=== PATIENT | female | born 2000 | race Asian ===

== ENCOUNTER → 2025-01-26 20:30 | Outpatient (REF) | payer OTHER, SELFPAY ==
--- OUTSIDE RECORDS SUMMARY | 2025-01-26 20:50 | XMS_ITS | Referral Summary ---
Author Organization [facility] Address [address] [place] [address] Care Team Providers Care Oil Field Operator Name Role Phone Ina Barnett MD Primary Care Provider [phone] Encounters Date Type Department Care Team Description 12/25/2024 Orders Only [facility] Allergy [address] [address] Rock Picker: Prakash Mondragon NP RICARDO (obstructive sleep apnea) (Primary Dx) 12/25/2024 myChart Message [facility] Lung and Allergy [address] [address] Rock Picker: Prakash Mondragon NP Sleep study 11/27/2024 9:00 AM EST Office Visit [facility] [address] [place] [phone] Rock Picker: Ina Blackwood MD Routine general medical examination at a health care facility (Primary Dx); Mild obstructive sleep apnea from Last 3 Months Allergies No known active allergies Medications * This document contains information received from the source organization and may not represent a complete record from that organization. cetirizine (ZyrTEC) 10 mg tablet Take 10 mg by mouth daily as needed for seasonal allergies or rhinitis. Active norelgestromin- ethin.estradioL (Xulane) 150-35 mcg/24 hr Apply 1 patch to skin as directed each week for 3 weeks, then remove for 1 patch free week. 9 patch 3 11/25/202 4 Active typhoid vaccine, live (VIVOTIF) capsule Take 1 capsule on days 1, 3, 5 and 7, at least one week prior to departure 4 capsule 5 Active azithromycin (ZITHROMAX) 500 mg tablet Take 1 tablet (500 mg total) by mouth once a day. For travelers diarrhea 3 tablet 5 Active Active Problems Problem Noted Date Diagnosed Date Mild obstructive sleep apnea 11/13/2016 Assessment & Plan (11/27/2024 9:49 AM EST): She feels that her sleep apnea symptoms are worsening which she attributes to her weight gain. She would like to try to undergo a sleep study. It looks like she did see nurse practitioner Kumar fowler in August 19 and at that time a sleep study was ordered but her insurance did not approve it. She does have new insurance now. I will reach out The nurse practitioner to see if she be willing to reorder her sleep study. 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 10/23/20 17 Curvature of spine 11/16/2015 9 Overview (07/16/2017): kyphosis Comedonal acne 09/30/2015 10/20/2019 Upper respiratory infection 10/14/2012 10/23/2017 Acute phlegmonous pharyngitis 10/14/2012 10/23/2017 Nonvenomous insect bite of multiple sites 09/01/2012 10/20/2019 Overview (07/16/2017): erythematous papules and macules primarily in the lower right quadrant under the umbilicus, formerly pruritic...most consistent with bug bites (perhaps flea/sand bugs) Immunizations Immunization Administration Dates Next Due COVID-19, Moderna, mRNA, LNP -S, Bivalent Booster, PF 09/14/2022 Covid-19 Monovalent Vaccine, Moderna, mRNA, PF 10/17/2021,03/09/2021,02/09/2021 Covid-19, Moderna, mRNA, Vac cine, PF, 50 mcg/0.5 mL (for age 12 y and up) 08/20/2023 Diphtheria, Tetanus Toxoids and Acellular Pertussis Vaccine, 5 Pertussis Antigens 12/08/2002,01/31/2000,1998,05/18,1998 Haemophilus Influenzae Type B Vaccine, PRP-OMP Conjugate 10/06/2002 Hepatitis A Vaccine, Adult Dosage 05/24/2008,07/2006 Hepatitis B adult (ENGERIX-B/RECOMBIVAX HB ADULT) vaccine 1 mL IM 1998,1998,1998 Human Papilloma Virus Vaccin e, Quadrivalent 03/06/2010,11/03/2009,08/02/2009 Human Rabies Vaccine from [facility] Fibroblast Culture 06/19/2022,06/12/2022,06/08/2022,06/05 INFLUENZA, SPLIT VIRUS, TRIVALENT, PF ,08/04/2015,11/20/2013,09/01,08/31/2011,08/02/2009,09/20/2008 ,09/29/2003,08/25/2003 Influenza Virus Vaccine, Uns pecified Formulation 09/17/2017 Influenza, Injectable, Madin [place] Canine Kidney, Preservative Free, Quadrivalent 08/15/2023,07/31/2022,10/17/2021 Influenza, Injectable, Quadr ivalent, Preservative Free 10/08/2020,10/20/2019,08/15/2018 Measles, Mumps, and Rubella Vaccine 12/08/2002,1 12/07/2001 Meningococcal B Vaccine, Rec ombinant, OMV, Adjuvanted 10/22/2017,09/17/2017 Meningococcal Polysaccharide (Groups A, C, Y and W-135) Diphtheria Toxoid Conjugate Vaccine (MCV4P) 03/30/2016,08/02/2009 Novel [id number], Preservative-Free, Injectable 11/03/2009 Poliovirus Vaccine, Inactivated 12/08/19,01/31/2000,1998,05/18,1998 Rabies Immune Globulin 06/05/2022 Tetanus Toxoid, Reduced Diph theria Toxoid, and Acellular Pertussis Vaccine, Adsorbed 06/26/2019,08/02/2009 Tuberculin Skin Test; Purifi ed Protein Derivative Solution, Intradermal 03/30/2016,04/02/2014 Typhoid Vi Capsular Polysacc haride Vaccine 10/23/2017,04/21/2014,11/29/2011,11/24 Varicella Virus Vaccine 11/03/2009,10/06/2002 Social History Tobacco Use Types Packs/Day Years Used Date Smoking Tobacco: Never Smokeless Tobacco: Never Tobacco Cessation:Counseling Given: Not Answered Comments:: Alcohol Use Standard Drinks/Week Comments Not Currently 0 (1 standard drink = 0.6 oz pur e alcohol) socially [facility] backstitchities Answer Date Recorded In the past 12 months has th e electric, gas, oil, or water company threatened to shut off services in your home? No 11/20/2024 Hunger Vital Sign Answer Date Recorded Within the past 12 months, y ou worried that your food would run out before you got the money to buy more. Never true 11/20/19 25 Within the past 12 months, t he food you bought just didn't last and you didn't have money to get more. Never true 11/20/2024 Transportation Answer Date Recorded In the past 12 months, has l ack of reliable transportation kept you from medical appointments, meetings, work or from getting things needed for daily living? Yes 11/20/2024 Housing Answer Date Recorded Housing Risk Low 2 11/20/2024 Housing Risk Medium Not on file 11/20/2024 Housing Risk High Not on file 11/20/2024 What is your living situation today? LSSTEADY 11/20/2024 Comments Unknown Sex and Gender Information Value Date Recorded Sex Assigned at Female 06/30/2021 1:16 PM EDT Legal Sex Female 7:52 AM EDT Gender Identity Female 06/30/2021 1:16 PM EDT Sexual Orientation Choose not to disclose 2020 1:16 PM EDT Last Filed Vital Signs Vital Sign Reading Time Taken Comments Blood Pressure 127/83 11/27/2024 9:17 AM EST Pulse 79 11/27/2024 9:17 AM EST Temperature 36.2 ??C (97.2 ??F) 11/27/2024 9:17 AM ES T Respiratory Rate - - Oxygen Saturation 99% 11/27/2024 9:17 AM EST Inhaled Oxygen Concentration - - Weight 82.1 kg (181 lb) 11/27/2024 9:17 AM EST Height 167.6 cm (5' 6 ) 11/15/2023 3:31 PM EST Body Mass Index 29.21 11/15/2023 3:31 PM EST Plan of Treatment Upcoming Encounters Date Type Department Care Team (Late st Contact Info) Description 12/02/2025 9:40 AM EST Office Visit [facility] and [address] [address] Rock Picker: Ina Blackwood MD [address] [place] [phone] Procedures * Due to [place] [employer] law, this organization might not be sharing negative HIV tests. Procedure Name Priority Date/Time Associated Diagnosis Comments PAP Routine 11/15/2023 4:16 PM EST Visit for gynecologic examination X HEPATITIS C RNA, QUALITATIVE, TMA Routine 04/09/2014 3:53 PM EDT from Last 3 Months or Most Recently Relevant to Health Maintenance Results * Due to [facility] law, this organization might not be sharing negative HIV tests. * Pap (11/15/2023 4:16 PM EST) Specimen Adequacy Satisfactory for evaluation [facility] MANUAL 4 11:32 AM EST [facility] Pathologist Cytology Interpretation Negative for intraepithelial lesion or malignancy. [facility] MANUAL 4 11:32 AM EST [facility] at 1132 EST Comment:This is the result o f a morphological screening test with an inherent possibility of a false negative interpretation. Optimization Consultant Statement This Pap test was examined by the [employer], [place], [place]. This Pap test was examined in accordance with the [facility] Cytopathology Laboratory written policy, which incorporates all CLIA mandates. Current screening guidelines can be found in [place]: A Cancer Journal for Clinicians 2020;70:321-346. Current ASCCP management guidelines for abnormal Pap tests are published in the Journal Lower Genital Tract Disease Volume 2020;24:102-131. [facility] MANUAL 4 11:32 AM EST [facility] Clinical History routine pap [facility] MANUAL 4 11:32 AM EST [facility] Resulting Agency Case was signed out at [facility], Department of Pathology, [employer] 3 CLIA [id number] [facility] MANUAL 4 11:32 AM EST [facility] Report Header Gynecologic Cytology Report ? Case: [id number] ? Authorizing Provider: ??Ina Barnett MD ? Collected: ? 11/15/2023 1616 ? Ordering Location: ? [facility] ? Received: ?11/15/2023 1807 ? [place] ? Family and Community ? Medicine ? First Screen: ?Venu Funes ? Specimen: ?Screening ThinPrep Pap, Cervix/Endocervix ? 4 11:32 AM EST [facility] Brushing Cervix uteri structure / Unknown Non-Blood Collection / Unknown 11/15/2023 4:16 PM EST 11/15/2023 6:07 PM EST us Ina Barnett MD LAB PATHOLOGY/CYTOLOGY ORDER DALE Final Result [employer] [facility] LAB[facility]ORY [address] [place] [address], * Hepatitis C RNA, Qualitative, TMA (04/09/2014 3:53 PM EDT) Hepatitis C Viral RNA Qual TMA Not detected () [facility] (FIDEL) Comment: Reference Range: ??Not detected This test was performed using the Versant (R) HCV RNA Qualitative Assay (TMA). Test Performed by Carmen Bowling, [facility], [address] [place] [address] Timur Ferguson M.D., Ph.D., Director of Laboratories , JONATAN [id number] 04/09/2014 3:53 PM EDT 04/09/2014 4:29 PM EDT us Ruth Ann Saul MD LAB BLOOD ORDERABLES Fin al Result [facility] [place]) [address] [place], [place] , [place] from Last 3 Months or Most Recently Relevant to Health Maintenance Insurance Care Teams Oil Field Operator Relationship Specialty Start Date End Date Ina Barnett MD [address] [place] [phone] PCP - General Family Medicine 10/20/19
--- OUTSIDE RECORDS SUMMARY | 2025-01-26 20:50 | XMS_ITS | Clinical Summary ---
Author Organization [facility] Address [address] [place] [address] Care Team Providers Care Political Theory Professor Name Role Phone Ina Barnett MD Primary Care Provider [phone] Allergies No known active allergies Medications * [...] 1 patch free week. 9 patch 3 4 Active typhoid vaccine, live (VIVOTIF) capsule [...] reorder her sleep study. Snoring 04/27/2016 Spot, [id number] 09/30/2015 Exposure to hepatitis 04/09/2014 Intermittent asthma [...] consistent with bug bites (perhaps flea/sand bugs) Encounters Date Type Department Care Team Description 12/25/2024 Orders Only [facility] [address] [place] [phone] Pmp: Prakash Mondragon NP RICARDO (obstructive sleep apnea) (Primary Dx) 12/25/2024 myChart Message [facility] [address] [place] [phone] Pmp: Prakash Mondraogn NP Sleep study 11/27/2024 9:00 AM EST Office Visit [facility] [address] [place] [phone] Pmp: Ina Blackwood MD Routine general medical examination at a health care facility (Primary Dx); Mild obstructive sleep apnea from Last 3 Months Immunizations Immunization Administration Dates Next Due COVID-19, [...] e, Quadrivalent 03/06/2010,11/03/2009,08/02/2009 Human Rabies Vaccine from [facility] Fibroblast Culture 06/19/2022,06/12/2022,06/08/2022,06/05 INFLUENZA, SPLIT VIRUS, TRIVALENT, PF ,08/04/2015,11/20/2013,09/01,08/31/2011,08/02/2009,09/20/2008 ,09/29/2003,08/25/2003 Influenza Virus Vaccine, Uns pecified Formulation 09/17/2017 Influenza, Injectable, Madin [place] Canine Kidney, Preservative Free, Quadrivalent 08/15/2023,07/31/2022,10/17/2021 Influenza, Injectable, Quadr ivalent, Preservative Free 10/08/2020,10/20/2019,08/15/2018 Measles, Mumps, and Rubella Vaccine 12/08/2002,1 12/07/2001 Meningococcal B Vaccine, Rec ombinant, OMV, Adjuvanted 10/22/2017,09/17/2017 Meningococcal Polysaccharide (Groups A, C, Y and W-135) Diphtheria Toxoid Conjugate Vaccine (MCV4P) 03/30/2016,08/02/2009 Novel [id number], Preservative-Free, Injectable 11/03/2009 Poliovirus Vaccine, Inactivated 12/08/19,01/31/2000,1998,05/18,1998 Rabies Immune Globulin 06/05/2022 Tetanus Toxoid, Reduced Diph theria Toxoid, and Acellular Pertussis Vaccine, Adsorbed 06/26/2019,08/02/2009 Tuberculin Skin Test; Purifi ed Protein Derivative Solution, Intradermal 03/30/2016,04/02/2014 Typhoid Vi Capsular Polysacc haride Vaccine 10/23/2017,04/21/2014,11/29/2011,11/24 Varicella Virus Vaccine 11/03/2009,10/06/2002 Family History Medical History Relation Name Comments Other Father No pertinent fa pascual history -not biological No Known Problems Mother Relation Name Status Comments Father Mother Social History Tobacco Use Types Packs/Day Years Used Date Smoking Tobacco: Never Smokeless Tobacco: Never Tobacco Cessation:Counseling Given: Not Answered Comments:: Alcohol Use Standard Drinks/Week Comments Not Currently 0 (1 standard drink = 0.6 oz pur e alcohol) [employer] Utilities Answer Date Recorded In the past 12 months has th e [employer], gas, oil, or water [employer] threatened to shut off services in your [...] 36.2 ??C (97.2 ??F) 11/27/2024 9:[address] Respiratory Rate - - Oxygen Saturation 99% [...] Description 12/02/2025 9:40 AM EST Office Visit [facility] [address] [place] [phone] Pmp: Ina Blackwood MD [address] [place] [phone] Health Maintenance Due Date Last Done Comments HIV Screening 1998 Hepatitis B Vaccines (4 of 4 - 4-dose series) 1998 1998, 1998, 1998 Pneumococcal Vaccine: Pediat cyndee (0-5 Years) and At-Risk Patients (6-50 Years) (1 of 2 - PCV) 2017 COVID-19 Vaccine (2023-2 5 season) 2024 08/20/2023, 09/14/2022, 10/17/2021, Additional history exists Influenza Vaccine (#1) 2024 3, 07/31/2022, 10/17/2021, Additional history exists Social Drivers of Health [place] ual Screening 11/20/2025 11/20/2024 Depression Screening and Follow-Up 12/01/20252024 Pap Smear 11/15/2026 11/15/2023, 10/28, 05/13/2020, Additional history exists DTaP,Tdap,and Td Vaccines (8 - Td or Tdap) 06/26/2029 06/26/2019, 08/02/2009, 12/08/2002, Additional history exists RSV Vaccine (60+ years old a nd patients) (1 - 1-dose 75+ series) 2073 Varicella Vaccines Completed 11/03/2009, 10/06/2002 Hepatitis C Screening Completed 04/09/2014 Alcohol/Substance Use Screening Completed 5 Procedures * Due to [place] [employer] law, this organization might not be sharing negative HIV tests. Procedure Name Priority Date/Time Associated Diagnosis Comments PAP Routine 11/15/2023 4:16 PM EST Visit for gynecologic examination X HEPATITIS C RNA, QUALITATIVE, TMA Routine 04/09/2014 3:53 PM EDT from Last 3 Months or Most Recently Relevant to Health Maintenance Results * Due to [place] [employer] law, this organization might not be sharing negative HIV tests. * Pap (11/15/2023 4:16 PM EST) Specimen Adequacy Satisfactory for evaluation [facility] MANUAL 4 11:32 AM EST [facility] Pathologist Cytology Interpretation Negative for intraepithelial lesion or malignancy. [facility] MANUAL 4 11:32 AM EST [facility] at 1132 EST Comment:This is the result o f a morphological screening test with an inherent possibility of a false negative interpretation. Stone Hand Statement This Pap test was examined by the [facility] System, [employer], [place], [place]. This Pap test was examined in accordance with the [facility] Cytopathology Laboratory written policy, which incorporates all CLIA mandates. Current screening guidelines can be found in [place]: A Cancer Journal for Clinicians 2020;70:321-346. Current ASCCP management guidelines for abnormal Pap tests are published in the Journal Lower Genital Tract Disease Volume 2020;24:102-131. [facility] MANUAL 4 11:32 AM EST [facility] Clinical History routine pap [facility] MANUAL 4 11:32 AM EST [facility] Resulting Agency Case was signed out at [facility], Department of Pathology, Biotech 3 CLIA [id number] [facility] MANUAL 4 11:32 AM EST [facility] Report Header Gynecologic Cytology Report ? Case: [id number] ? Authorizing Provider: ??Ina Barnett MD ? Collected: ? 11/15/2023 1616 ? Ordering Location: ? [facility] ? Received: ?11/15/2023 1807 ? [facility] ? Family and Community ? Medicine ? First Screen: ?Venu Funes ? Specimen: ?Screening ThinPrep Pap, Cervix/Endocervix ? 11:32 AM EST [facility] Brushing Cervix uteri structure / Unknown Non-Blood Collection / Unknown 11/15/2023 4:16 PM EST 11/15/2023 6:07 PM EST us Ina Barnett MD LAB PATHOLOGY/CYTOLOGY ORDER DALE Final Result Performing Organization Address [facility] de Phone Number [facility]OLOG[facility]ORATORY [address] [place] [address] * Hepatitis C RNA, Qualitative, TMA (04/09/2014 3:53 PM EDT) Hepatitis C Viral RNA Qual TMA Not detected () [facility]) Comment: Reference Range: ??Not detected This test was performed using the Versant (R) HCV RNA Qualitative Assay (TMA). Test Performed by Carmen Bowling, [facility], [id number] [place] [address] Timur Ferguson M.D., Ph.D., Director of Laboratories , [facility] [id number] 04/09/2014 3:53 PM EDT 04/09/2014 4:29 PM EDT Ruth Ann Saul MD LAB BLOOD ORDERABLES Fin al Result Performing Organization Address [facility] Co de Phone Number [facility] SANDOVAL) [address] [place], [place] , [place] from Last 3 Months or Most Recently Relevant to Health Maintenance [place] [address] [address] Care Teams Political Theory Professor Relationship Specialty Start Date End Date Ina Barnett MD [address] [place] [phone] PCP - General Family Medicine 10/20/19
--- OUTSIDE RECORDS SUMMARY | 2025-01-26 20:50 | XMS_ITS | Encounter Summary ---
Author Organization [facility] Address [address] [place] [address] Care Team Providers Care Inspector Watch Train Name Role Phone Ina Barnett MD Primary Care Provider [phone] Encounter Details Date Type Department Care Team (Late st Contact Info) Description 11/13/2016 Orders Only [facility] [address] [address] Kathryn Fuller NP [address] [place] [address] Social History Tobacco Use Types Packs/Day Years Used Date Smoking Tobacco: Never Assessed Comments Unknown Sex and Gender Information Value Date Recorded Sex Assigned at Female 06/30/2021 1:16 PM EDT Legal Sex Female 7:52 AM EDT Gender Identity Female 06/30/2021 1:16 PM EDT Sexual Orientation Choose not to disclose 2020 1:16 PM EDT documented as of this encounter Plan of Treatment Upcoming Encounters Date Type Department Care Team (Late st Contact Info) Description 12/02/2025 9:40 AM EST Office Visit [facility] Family and Community Medicine [address] [place] [phone] Physical Design Engineer: Ina Blackwood MD [address] [place] [address] documented as of this encounter Visit Diagnoses Not on filedocumented in this encounter Care Teams Inspector Watch Train Relationship Specialty Start Date End Date Ina Barnett MD [address] [place] [phone] PCP - General Family Medicine 10/20/19 documented as of this encounter
== END ==
LOC: HO.SL 20:30
PROVIDERS: Visit Provider Nurse Practitioner Primary Care
DX: Z13.89 Encounter for screening for other disorder (principal)